=== PATIENT | female | born 1990 ===

== ENCOUNTER 2018-03-18 16:14 | Emergency (ER) | payer SELFPAY ==
[2018-03-18 16:29] VITALS: BMI 24.1
--- NOTE | 2018-03-18 17:07 | ED PDOC ---
Arrival/HPI - General Historian: Patient - History of Present Illness Time/Duration: Prior to Arrival Symptom Onset: Gradual Severity Level: 10 Activities at Onset: Rest Context: Walking, Home - General Time Seen by Provider: 03/18/18 16:20 - History of Present Illness Narrative History of Present Illness (Text): 03/18/18 16:58 Patient is a 27 Hungarian speaking female F with no significant past medical history who presents with complaints of headache and neck pain which radiates down he back to her thighs bilaterally. States that since giving to her child she has suffered from neck and back pain. Patient states only one other instance did she also have b/l thigh pain as she does now. States pain is a 10/ 10 and is associated with numbness and tingling of thighs bilaterally. Pain is exacerbated with movement and walking, relieved when body is massaged. Patient states when she normally has this pain it is relieved with toradol and flexeril. Admits to difficulty breathing associated with high pain scale. Denies chest pain, palpitations, fevers, chills, abdominal pain, nausea, vomiting, diarrhea, recent sick contacts. To note patient recently immigrated from [facility] a week ago. PMD: in process of estbalishing care since she just moved to this country Past medical history: back pain (Isai Watts) Past Medical History - Provider Review Nursing Documentation Reviewed: Yes Family/Social History - Physician Review Nursing Documentation Reviewed: Yes Family/Social History: Other (non-contributory) Allergies/Home Meds Allergies/Adverse Reactions: Allergies No Known Allergies Allergy (Verified 03/18/18 16:48) Review of Systems - Physician Review All systems were reviewed & negative as marked: Yes - Review of Systems Constitutional: absent: Fatigue, Fevers Eyes: absent: Vision Changes Respiratory: SOB. absent: Cough, Sputum, Wheezing Cardiovascular: absent: Chest Pain, Palpitations Gastrointestinal: absent: Abdominal Pain, Diarrhea, Nausea, Vomiting Musculoskeletal: Back Pain, Neck Pain, Myalgias Skin: absent: Rash, Skin Lesions Neurological: Headache. absent: Dizziness Psychiatric: absent: Anxiety Physical Exam Temperature: Afebrile Blood Pressure: Normal Pulse: Regular Respiratory Rate: Normal Appearance: Positive for: Well-Appearing, Non-Toxic, Comfortable Pain Distress: None Mental Status: Positive for: Alert and Oriented X 3 - Systems Exam Head: Present: Atraumatic, Normocephalic Pupils: Present: PERRL Extroacular Muscles: Present: EOMI Conjunctiva: Present: Normal Mouth: Present: Moist Mucous Membranes Neck: Present: Normal Range of Motion Respiratory/Chest: Present: Clear to Auscultation. No: Wheezes, Rhonchi Cardiovascular: Present: Regular Rate and Rhythm, Normal S1, S2 Abdomen: Present: Normal Bowel Sounds. No: Tenderness, Distention Upper Extremity: Present: Normal Inspection. No: Edema Lower Extremity: Present: Normal Inspection. No: Edema Neurological: Present: GCS=15, CN II-XII Intact, Speech Normal Skin: Present: Warm, Normal Color Psychiatric: Present: Alert, Oriented x 3, Normal Insight, Normal Concentration Vital Signs Temp Pulse Resp Pulse Ox 03/18/18 16:37 98.1 F 82 16 99 Medical Decision Making Re-evaluation Time: 18:33 Reassessment Condition: Re-examined, Improved ED Course and Treatment: 03/18/18 17:10 -Will give toradol and flexeril 03/18/18 18:33 Majority of patient's symptoms have improved and are continuing to improve, will d/c patient with flexeril and motrin. (Isai Watts) 03/18/18 19:01 27 yo female with neck and back pain. Agree with resident note. Toradol and flexeril really improved her symptoms. She is able to walk with no ataxia. She was advised to follow up with the clinic as an outpatient and return to the ED with any concerns. (Gene Small) - Medication Orders Current Medication Orders: Discontinued Medications Cyclobenzaprine HCl (Flexeril) 10 mg PO STAT STA Stop: 03/18/18 16:53 Last Admin: 03/18/18 17:23 Dose: 10 mg Ketorolac Tromethamine (Toradol) 30 mg IM STAT STA Stop: 03/18/18 16:53 Last Admin: 03/18/18 17:23 Dose: 30 mg MAR Pain Assessment Document 03/18/18 17:23 MS (Rec: 03/18/18 17:23 MS [id number]) Pain Reassessment Is this a pain reassessment? No Sleep Is patient sleeping during reassessment? No Presence of Pain Presence of Pain Yes Pain Scale Used Pain Scale Used Numeric Location Upper or Lower Lower Pain Location Body Site Back Description Description Constant Intensity of Pain at present 7 Pain Behavior Moaning IM Administration Charges Document 03/18/18 17:23 MS (Rec: 03/18/18 17:23 MS [id number]) Injection Site MAR Injection Site Left Deltoid Charges for Administration # of IM Administrations 1 Disposition/Present on Arrival - Present on Arrival Any Indicators Present on Arrival: No History of DVT/PE: No History of Uncontrolled Diabetes: No Urinary Catheter: No History of Decub. Ulcer: No History Surgical Site Infection Following: None - Disposition Have Diagnosis and Disposition been Completed?: Yes Disposition Time: 18:34 Patient Plan: Discharge - Disposition Diagnosis: Muscle strain Disposition: HOME/ ROUTINE Condition: IMPROVED Additional Instructions: Filiberto, thank you for letting us take care of you today. Your provider was Dr. Small. You were treated for your muscle strain. The emergency medical care you received today was directed at your acute symptoms. If you were prescribed any medication, please fill it and take as directed. It may take several days for your symptoms to resolve. Return to the Emergency Department if your symptoms worsen, do not improve, or if you have any other problems. Please contact your doctor or call one of the physicians/clinics you have been referred to that are listed on the Patient Visit Information form that is included in your discharge packet. Bring any paperwork you were given at discharge with you along with any medications you are taking to your follow up visit. Our treatment cannot replace ongoing medical care by a primary care provider (PCP) outside of the emergency department. Thank you for allowing the [facility] team to be part of your care today. Prescriptions: Cyclobenzaprine [Cyclobenzaprine HCl] 10 mg PO DAILY PRN #5 tab PRN Reason: Muscle Spasm Ibuprofen [Motrin] 600 mg PO Q8 #21 tab Referrals: PCP,NO [Primary Care Provider] - Follow up with primary
[2018-03-18 18:39] VITALS: RESP 16; TEMP 98.1; O2SAT 99
[2018-03-19 00:25] VITALS: BP 123/76; PULSE 88
== END 2018-03-18 19:17 | disposition home or self-care (01) ==
LOC: ED 16:14
DX: T14.8XXA Other injury of unspecified body region, initial encounter (principal); X58.XXXA Exposure to other specified factors, initial encounter
CPT/HCPCS: 96372; 99282; J1885